=== PATIENT | male | born 1995 | race Caucasian/White ===

== ENCOUNTER 2021-12-18 22:01 | Emergency (ER) | payer SELFPAY ==
[~2021-12-18] VITALS: Ht 193 cm; Wt 114.9 kg
[2021-12-18 22:20] VITALS: BP 150/87
[2021-12-18] MEDS ORDERED: GABA-585 PO (23:05)
--- NOTE | 2021-12-18 23:07 | PHYS DOC ---
Past Medical History Additional Past Medical Histor: PER PT [employer]CLE [employer] (MOISES LOZOYA SHERIFF DEPUTY) Past Surgical History: Tonsillectomy, Other Additional Past Surgical Histo: CA BONE 2010 (MOISES LOZOYA APRN) General Adult EDM: Chief Complaint: UPPER EXTREMITY PAIN HPI: HPI: Patient is a 26 year old male who presents to the ED stating he does not have any function in the right upper extremity, symptoms began. Patient denies any injury. He states the symptoms are stemming from a spider bite he had in 2021 the right hand. He states since then he has had pain and sometimes loses function to the hand. Patient states he has pain to the hand as well. Rates the pain is moderate worse on range of motion. Is requesting something for pain. He states he does not want any imaging or work-up because it will cost a lot of money. (MOISES LOZOYA APRN) Review of Systems: Review of Systems: Constitutional: Denies fever or chills. [][] Musculoskeletal: Reports right upper extremity pain Integument: Denies rash. [] Neurologic: Denies headache, focal weakness or sensory changes. [] . [] Psychiatric: Denies depression or anxiety. [] (MOISES LOZOYA SHERIFF DEPUTY) Heart Score: C/O Chest Pain: N/A Risk Factors: Risk Factors: DM, Current or recent (<one month) smoker, HTN, HLP, family history of CAD, obesity. Risk Scores: Score 0 - 3: 2.5% MACE over next 6 weeks - Discharge Home Score 4 - 6: 20.3% MACE over next 6 weeks - Admit for Clinical Observation Score 7 - 10: 72.7% MACE over next 6 weeks - Early Invasive Strategies (MOISES LOZOYA SHERIFF DEPUTY) Allergies: Allergies: Allergies Coded Allergies Type Severity Reaction Last Updated Verified vancomycin Allergy Intermediate REYMUNDO SYNDROME 12/18/21 Yes (MOISES LOZOYA SHERIFF DEPUTY) Physical Exam: PE: Constitutional: Well developed, well nourished, no acute distress, non-toxic appearance. [] Skin: Warm, dry, no erythema, no rash. [] Back: No tenderness, no CVA tenderness. [] Extremities: No tenderness, no cyanosis, no clubbing, ROM intact, no edema. +2 bilateral radial pulses, adequate radial, medial, ulnar sensation to the right hand. Cap refill less than 2 seconds to right fingers Neurologic: Alert and oriented X 3, normal motor function, normal sensory function, no focal deficits noted. [] Psychologic: Affect normal, judgement normal, mood normal. [] (MOISES LOZOYA APRN) Current Patient Data: Vital Signs: Vital Signs Date Time Temp Pulse Resp B/P (MAP) Pulse Ox O2 Delivery O2 Flow Rate FiO2 12/18/21 22:20 97.9 103 18 150/87 (108) 94 Room Air 97.9 (MOISES LOZOYA APRN) EKG: EKG: [] (MOISES LOZOYA APRN) Radiology/Procedures: Radiology/Procedures: [] (MOISES LOZOYA APRN) Course & Med Decision Making: Course & Med Decision Making Pertinent Labs and Imaging studies reviewed. (See chart for details) This a 26-year-old male patient presenting to the ED today complaining of loss of function as well as pain to the right upper extremity. Patient is using his right upper extremity in the ED with no difficulties. He states this issue is stemming from a spider bite he had in 2019. Spider bite site has no signs of infection, discharged to home, physical exam continues to be benign with full function to bilateral upper extremities. F/u with PCP (MOISES LOZOYA APRN) Course & Med Decision Making Patients Care and treatment plan provided by ER Nurse Practitioner. I was available for consult. Patient's chart reviewed. (CATHY LAKHANI DO) Rebekah Disclaimer: Rebekah Disclaimer: This electronic medical record was generated, in whole or in part, using a voice recognition dictation system. (MOISES LOZOYA APRN) Departure Departure Impression: Primary Impression: Upper extremity pain Qualified Codes: M79.601 - Pain in right arm Disposition: 01 HOME / SELF CARE / HOMELESS Condition: STABLE Referrals: NO PCP (PCP) follow up with your doctor in one week Patient Instructions: Musculoskeletal Pain Additional Instructions: You were evaluated in the emergency room for right upper extremity musculoskeletal pain/discomfort. Please follow-up with your primary care doctor in 1 week. Scripts Gabapentin (GABAPENTIN ) 100 Mg Capsule 100 MG PO TID for NEUROGENIC PAIN, #12 CAP Prov: MOISES LOZOYA APRN 12/18/21 MOISES LOZOYA APRN Dec 18, 2021 23:07 CATHY LAKHANI DO Dec 20, 2021 03:52
== END 2021-12-18 23:05 | disposition home or self-care (01) ==
LOC: ER 22:01
DX: M79.601 Pain in right arm (principal); Z88.1 Allergy status to other antibiotic agents
CPT/HCPCS: 99283